=== PATIENT | female | born 1975 | race Caucasian/White ===

== ENCOUNTER 2023-04-16 05:24 | Day surgery (SDC) | payer OTHER ==
[~2023-04-16] VITALS: Ht 149.9 cm; Wt 61.2 kg
== END 2023-04-16 09:20 | disposition home or self-care (01) ==
LOC: MDS 05:24 → MMU 06:31 → MDS 09:20
PROVIDERS: ATTEND Obstetrics & Gynecology
DX: N92.1 Excessive and frequent menstruation with irregular cycle (principal); D21.9 Benign neoplasm of connective and other soft tissue, unspecified; N84.1 Polyp of cervix uteri; Z53.8 Procedure and treatment not carried out for other reasons

== ENCOUNTER 2023-04-18 06:17 | Day surgery (SDC) | payer OTHER ==
[~2023-04-18] VITALS: Ht 149.9 cm; Wt 61.2 kg
[2023-04-18] MEDS ORDERED: ceFAZolin 1,000 MG VIAL ONE (07:10)
[2023-04-18] MEDS ORDERED: fentaNYL citrate 0.05 MG/ML VIAL ONE (07:31)
[2023-04-18] MEDS ORDERED: ceFAZolin 2,000 MG VIAL ONE (07:39)
[2023-04-18] MEDS ORDERED: PROPOFOL 200 MG/20 ML VIAL IV ONE (07:55)
[2023-04-18] MEDS ORDERED: ONDANSETRON 4 MG/2 ML VIAL ONE (07:55)
[2023-04-18] MEDS ORDERED: DEXAMETHASONE 4 MG/ML VIAL ONE (07:55)
[2023-04-18] MEDS ORDERED: ONDANSETRON 4 MG/2 ML VIAL IVP PRN (08:35)
[2023-04-18] MEDS ORDERED: HYDROmorphone 1 MG/ML AMP IVP PRN (08:35)
[2023-04-18] MEDS ORDERED: diphenhydrAMINE 50 MG/ML VIAL IVP PRN (08:35)
[2023-04-18] MEDS ORDERED: MEPERIDINE 25 MG/ML SYR IVP PRN (08:35)
[2023-04-18] MEDS ORDERED: LACTATED RINGERS 1,000 ML IV SCH (08:35)
== END 2023-04-18 10:00 | disposition home or self-care (01) ==
LOC: MDS 06:17 → MMU 06:18 → MDS 10:00
PROVIDERS: ATTEND Obstetrics & Gynecology
DX: N92.0 Excessive and frequent menstruation with regular cycle (principal); N84.0 Polyp of corpus uteri; J45.909 Unspecified asthma, uncomplicated; E03.9 Hypothyroidism, unspecified; E78.5 Hyperlipidemia, unspecified
CPT/HCPCS: 58558; 88305; 88313; 88342; J1100; J2405; J2704; J3010; J7030; J0690